=== PATIENT | male | born 1950 | race Caucasian/White ===

== ENCOUNTER 2021-04-10 09:21 | Inpatient (IN) | payer OTHER, MEDICARE ==
[~2021-04-10] VITALS: Ht 170.2 cm; Wt 89.0 kg
[2021-04-10 10:17] LABS: BASOPHILS # (AUTO) 0.1 X10'3 (0-0.2); BASOPHILS % (AUTO) 0.7 % (0-1); EOSINOPHILS # (AUTO) 0.1 X10'3 (0-0.9); HEMOGLOBIN 15.5 g/dl (14.0-17.9); LYMPHOCYTES # (AUTO) 0.7 X10'3 (1.1-4.8); LYMPHOCYTES % (AUTO) 7.7 % (21-51); MEAN CORPUSCULAR HEMOGLOBIN 28.4 PG (27.0-31.0); MEAN PLATELET VOLUME 9.1 FL (7.4-10.4); MONOCYTES # (AUTO) 0.6 X10'3 (0-0.9); MONOCYTES % (AUTO) 7.1 % (2-12); NEUTROPHILS # (AUTO) 7.6 X10'3 (1.8-7.7); NEUTROPHILS % (AUTO) 83.5 % (42-75); PLATELET COUNT 215 X10'3 (140-440); RED BLOOD COUNT 5.47 X10'6 (4.70-6.10); RED CELL DISTRIBUTION WIDTH 14.1 % (11.5-14.5); WHITE BLOOD COUNT 9.1 X10'3 (4.5-11.0)
[2021-04-10 10:38] LABS: ALANINE AMINOTRANSFERASE 23 U/L (12-78); ALKALINE PHOSPHATASE 90 IU/L (46-116); ANION GAP 14 (8-16); ASPARTATE AMINO TRANSFERASE 19 U/L (10-37); CHLORIDE 103 MMOL/L (99-107); CREATININE 1.02 MG/DL (0.60-1.10); POTASSIUM 4.5 MMOL/L (3.5-5.1); SODIUM 140 MMOL/L (135-145); TOTAL CARBON DIOXIDE 23.4 MMOL/L (24-32); eGFR 72 ML/MIN
[2021-04-10 10:44] LABS: ALBUMIN 3.9 G/DL (3.4-5.0); CALCIUM 8.8 MG/DL (8.5-10.1); GLUCOSE 166 MG/DL (70-104)
[2021-04-10 10:51] LABS: BLOOD UREA NITROGEN 17 MG/DL (7-18); BUN/CREATININE RATIO 16.7 (5.4-32.0)
[2021-04-10] MEDS ORDERED: CefTRIAXone/D5W-Rocephin 1gm 50 ML IV ONE (11:05)
[2021-04-10] MEDS ORDERED: clindamycin 600mg/D5W 50ml 50 ML IV ONE (11:40)
[2021-04-10] MEDS ORDERED: mag hydrox/Alum hydrox/simeth 30ml oral suspension PO PRN (11:45)
[2021-04-10] MEDS ORDERED: magnesium hydroxide 30ml (MOM) UD suspension PO PRN (11:45)
[2021-04-10] MEDS ORDERED: ondansetron/PF 4mg/2ml inj IV PRN (11:45)
[2021-04-10] MEDS ORDERED: acetaminophen 325mg tablet PO PRN (11:45)
[2021-04-10] MEDS ORDERED: GLIM2TAB6 PO (13:06)
[2021-04-10] MEDS ORDERED: LISI2.5T14 PO (13:06)
[2021-04-10] MEDS ORDERED: OMEP-50 PO (13:06)
[2021-04-10] MEDS ORDERED: ROSU40TA PO (13:06)
[2021-04-10] MEDS ORDERED: FLO0.4C PO (13:06)
[2021-04-10] MEDS ORDERED: LUTE1CAP5 PO (13:07)
[2021-04-10] MEDS ORDERED: SEMA0.25 SQ (13:11)
[2021-04-10] MEDS: normal saline 1000ml 1,000 ML IV SCH ×2 (13:12→21:45)
[2021-04-10] MEDS ORDERED: EMPA10TA PO (13:19)
--- NOTE | 2021-04-10 15:00 | NUR ---
Received pt from Krupa Addison in ER. Pt alert and oriented. VSS. Assessment completed. Wound picture taken of left foot.
[2021-04-10 15:22] VITALS: BP 153/64
[2021-04-10] MEDS ORDERED: insulin Lispro (HumaLOG) vial - multi-dose SQ SCH (15:40)
[2021-04-10] MEDS ORDERED: dextrose ORAL solution 15 GM/59 ML bottle PO PRN ×2 (15:40)
[2021-04-10] MEDS ORDERED: glucagon, human recombinant 1mg kit SUBCUT PRN (15:40)
[2021-04-10] MEDS ORDERED: dextrose 50%-water 50ml dispensing syringe IV PRN ×2 (15:40)
[2021-04-10] MEDS ORDERED: MESSAGE TO PHARMACY PO ONE (15:40)
--- NOTE | 2021-04-10 15:52 | NUR ---
Paged to Dr Lomax at [phone]: Pt [place] [id number] home meds are ready to be converted. Hes a diabetic so I ordered diabetic protocol. [facility] ext [phone]
[2021-04-10] MEDS ORDERED: ceFAZolin/D5W- 1GM premix 50 ML IV SCH (16:00)
[2021-04-10 16:35] LABS: HEMOGLOBIN A1C 8.7 % (4.5-6.2)
[2021-04-10] MEDS: cefepime 2g/NS 100ml ADVANTAGE 100 ML IV SCH (17:22)
[2021-04-10 18:00] VITALS: BP 140/84
--- NOTE | 2021-04-10 18:36 | NUR ---
Problems reprioritized. Patient report given, questions answered & plan of care reviewed with BRANDEN MERRILL.
--- NOTE | 2021-04-10 18:59 | NUR ---
Patient in room PCU 3026. I have received report from Heidy MERRILL and had the opportunity to ask questions and assume patient care.
--- NOTE | 2021-04-10 19:04 | NUR ---
Patient in room PCU 3026. I have received report from Heidy MERRILL and had the opportunity to ask questions and assume patient care.
[2021-04-10] MEDS: docusate sod 100mg capsule PO SCH (19:45)
[2021-04-10] MEDS: metoprolol tartrate 12.5mg (1/2 tablet) PO SCH (19:46)
[2021-04-10] MEDS: beta-carotene(A) w/C & E + minerals tab PO SCH (19:47)
[2021-04-10] MEDS ORDERED: VANCOMYCIN 1,500MG inj. 1,500 MG in normal saline 500ml IV soln 500 ML IV SCH (20:00)
[2021-04-10] MEDS: insulin glargine (Lantus) pen - multi-dose SQ SCH (21:00)
[2021-04-11 02:00] VITALS: BP 148/82
--- NOTE | 2021-04-11 03:38 | NUR ---
I have reviewed and agree with all interventions, assessments performed and documented by Sheree MERRILL.
[2021-04-11] MEDS: cefepime 2g/NS 100ml ADVANTAGE 100 ML IV SCH ×2 (03:58→15:38)
[2021-04-11 05:58] LABS: BASOPHILS # (AUTO) 0.1 X10'3 (0-0.2); BASOPHILS % (AUTO) 0.6 % (0-1); EOSINOPHILS # (AUTO) 0.2 X10'3 (0-0.9); EOSINOPHILS % (AUTO) 2.7 % (0-6); HEMATOCRIT 43.7 % (42.0-52.0); HEMOGLOBIN 14.5 g/dl (14.0-17.9); LYMPHOCYTES # (AUTO) 1.1 X10'3 (1.1-4.8); LYMPHOCYTES % (AUTO) 12.8 % (21-51); MEAN CORPUSCULAR HEMOGLOBIN 28.4 PG (27.0-31.0); MEAN CORPUSCULAR HGB CONC 33.1 g/dL (33.0-36.5); MEAN CORPUSCULAR VOLUME 85.8 FL (78-98); MEAN PLATELET VOLUME 9.6 FL (7.4-10.4); MONOCYTES # (AUTO) 0.8 X10'3 (0-0.9); MONOCYTES % (AUTO) 9.2 % (2-12); NEUTROPHILS # (AUTO) 6.5 X10'3 (1.8-7.7); NEUTROPHILS % (AUTO) 74.7 % (42-75); PLATELET COUNT 224 X10'3 (140-440); RED CELL DISTRIBUTION WIDTH 13.9 % (11.5-14.5); WHITE BLOOD COUNT 8.7 X10'3 (4.5-11.0)
--- NOTE | 2021-04-11 06:00 | NUR ---
Patient in room U 3023Y. I have received report from GARFIELD Shelton and had the opportunity to ask questions and assume patient care.
[2021-04-11 06:03] LABS: ALBUMIN 3.4 G/DL (3.4-5.0); ANION GAP 9 (8-16); BLOOD UREA NITROGEN 16 MG/DL (7-18); CALCIUM 8.5 MG/DL (8.5-10.1); CHLORIDE 106 MMOL/L (99-107); GLUCOSE 120 MG/DL (70-104); POTASSIUM 4.3 MMOL/L (3.5-5.1); SODIUM 141 MMOL/L (135-145); TOTAL CARBON DIOXIDE 25.6 MMOL/L (24-32); eGFR 74 ML/MIN
--- NOTE | 2021-04-11 06:19 | NUR ---
Problems reprioritized. Patient report given, questions answered & plan of care reviewed with Heidy MERRILL.
--- NOTE | 2021-04-11 06:19 | NUR ---
Problems reprioritized. Patient report given, questions answered & plan of care reviewed with Heidy MERRILL.
[2021-04-11 07:29] VITALS: BP 142/75
[2021-04-11] MEDS ORDERED: (Empagliflozin (Jardiance) 25 MG) PO SCH (08:00)
[2021-04-11] MEDS: metoprolol tartrate 12.5mg (1/2 tablet) PO SCH ×2 (08:04→19:44)
[2021-04-11] MEDS: pantoprazole 40mg Tablet.DR PO SCH (08:05)
[2021-04-11] MEDS: lisinopril 2.5mg tablet PO SCH (08:05)
[2021-04-11] MEDS: docusate sod 100mg capsule PO SCH ×2 (08:06→19:43)
[2021-04-11] MEDS: atorvastatin 20mg tablet PO SCH (08:06)
[2021-04-11] MEDS: enoxaparin 40mg/0.4ml syringe SUBCUT SCH (08:08)
[2021-04-11] MEDS: beta-carotene(A) w/C & E + minerals tab PO SCH ×2 (08:11→19:43)
[2021-04-11] MEDS: tamsulosin 0.4mg capsule PO SCH (08:11)
[2021-04-11] MEDS: normal saline 1000ml 1,000 ML IV SCH ×2 (08:13→17:33)
--- NOTE | 2021-04-11 09:57 | NUR ---
WOUND INFECTION EDUCATION PROVIDED BY WOUND CARE 1. Patient instructed to call their primary doctor, or go the ED immediately if any of the following symptoms occur: * Increased pain in wound * Increase in drainage from the wound * Redness in the skin surrounding the wound * Warmth in the skin surrounding the wound * Bleeding from the wound * Temperature of 101 or greater 2. If any of these occur while in the hospital tell a nurse immediately. Addendum: 04/11/21 at 0957 by Aranza Salgado RN Amended: Links added.
[2021-04-11] MEDS: mineral oil/petrolatum, white cream 113gm jar TP SCH ×3 (10:05→21:00)
--- NOTE | 2021-04-11 10:45 | NUR ---
Pt went into Afib around 1030. Pt found to be asymptomatic attempting to take a nap. BP 139/65. Vagal manuevers attempted. Following page sent to Dr Lomax.: [place] in room 3026A went into afib HR between 100-130s. BP ok 136/65. Asymptomatic. We tried vagal manuvers. He has no PRNS for HR. He received Metoprolol this am [facility] ext [phone]
[2021-04-11 11:00] VITALS: BP 144/92
--- NOTE | 2021-04-11 12:55 | NUR ---
Dr Lomax paged: Dr Lomax. Can you please come speak to Pts family of [place] room [id number]? Sister is very upset saying he needs medical attention right now. She wants to speak with an MD kim. [facility] [id number]
[2021-04-11] MEDS: clindamycin 600mg/D5W 50ml 50 ML IV SCH ×2 (13:16→19:42)
[2021-04-11 15:00] VITALS: BP 110/55
--- NOTE | 2021-04-11 16:02 | NUR ---
DM consult: Pt with T2DM with A1c 8.7% seen at bedside for DM education. Pt states he was previously on a medication that his physician reported was interrupting absorption of DM medication. Pt reports discontinuing this medication roughly three weeks ago and since discontinuing it his blood sugars have been much better controlled in the 120s. Pt provided with RD contact information and encouraged to reach out if needed. Pt endorses a good appetite which is evident with documented 100% PO intake on heart healthy CHO controlled diet. Pt agrees to double protein TID for satiety and requests ketchup WB and no milk to drink, d/w dietary. Pt denies food allergies or difficulty chewing/swallowing. [facility] 04/10, pt reports fluctuations in diarrhea and constipation is common. Currently documented with no GI symptoms in EMR. Will continue to follow. Addendum: 04/11/21 at [address] Amended: Links added.
[2021-04-11 18:00] VITALS: BP 122/72
--- NOTE | 2021-04-11 18:15 | NUR ---
Problems reprioritized. Patient report given, questions answered & plan of care reviewed with GARFIELD Bentley.
--- NOTE | 2021-04-11 18:20 | NUR ---
Patient in room PCU 3026. I have received report from Heidy MERRILL and had the opportunity to ask questions and assume patient care.
[2021-04-11] MEDS: lactobacillus rhamnosus 10,000 MMU CELLS/CAPSULE PO SCH (19:42)
[2021-04-11] MEDS: insulin glargine (Lantus) pen - multi-dose SQ SCH (21:00)
--- NOTE | 2021-04-11 21:24 | NUR ---
Patient refusing Accu check tonight, he was counseled about the need to monitor his blood sugar as high results prevent wound healing. He was also mad the Dr. Carlisle the Orthopedist did not come see him today, he blames Dr. Lomax for this and is very resistant to care. His left foot was open to air with the 5th digit bleeding, I dressed his foot and advised him to elevate it. I will pass on to dayshift that he is angry and want to see the Orthopedists.
--- NOTE | 2021-04-11 21:24 | NUR ---
Pt refusing BS draw. Taught about the effects of not treating high sugar levels and still refused.
[2021-04-11 22:00] VITALS: BP 128/62
[2021-04-12] MEDS: clindamycin 600mg/D5W 50ml 50 ML IV SCH ×2 (01:53→08:49)
[2021-04-12 02:00] VITALS: BP 148/78
--- NOTE | 2021-04-12 03:01 | NUR ---
Patient standing outside his room, when asked if he needed anything he said "No, I just need not to smell shit". His neighbor had a bowel movement and was being cleaned up. He was so mean and nasty, I moved him to room 3021. He continued to verbally abuse me and tell me what a horrible nurse I was and unhygienic.
[2021-04-12] MEDS: cefepime 2g/NS 100ml ADVANTAGE 100 ML IV SCH (04:10)
[2021-04-12] MEDS: normal saline 1000ml 1,000 ML IV SCH (04:11)
--- NOTE | 2021-04-12 06:00 | NUR ---
Patient refused to let liaison inspection laboratory assistant draw him this morning, says he will not let them until he sees the orthopedist.
--- NOTE | 2021-04-12 06:21 | NUR ---
Problems reprioritized. Patient report given, questions answered & plan of care reviewed with Bijal MERRILL.
--- NOTE | 2021-04-12 06:30 | NUR ---
Patient in room PCU 3021. I have received report from Tayler MERRILL and had the opportunity to ask questions and assume patient care. Pt semi fowlers in bed, readily verbal, telling past stories, discussing topics he is disgruntled about regarding hospitals in general. pt encouraged to verbalize feelings. safety education completed. pt verbalized understanding AEB "I already know all that. you dont have to tell me." safety measures in place. no s/sx acute distress.
[2021-04-12 07:00] VITALS: BP 150/70
--- NOTE | 2021-04-12 07:54 | NUR ---
Dr. Julio C Carlisle to see pt, wound to left toes/foot: Dr. Carlisle debride area and dressed with clean dry dressing. Per Dr. Carlisle, pt can now be seen in out patient wound care setting.
[2021-04-12] MEDS: docusate sod 100mg capsule PO SCH (08:00)
[2021-04-12] MEDS: beta-carotene(A) w/C & E + minerals tab PO SCH (08:48)
[2021-04-12] MEDS: lactobacillus rhamnosus 10,000 MMU CELLS/CAPSULE PO SCH (08:48)
[2021-04-12] MEDS: mineral oil/petrolatum, white cream 113gm jar TP SCH (08:48)
[2021-04-12] MEDS: tamsulosin 0.4mg capsule PO SCH (08:48)
[2021-04-12] MEDS: enoxaparin 40mg/0.4ml syringe SUBCUT SCH (08:48)
[2021-04-12 08:49] VITALS: BP_SYST 149
[2021-04-12] MEDS: atorvastatin 20mg tablet PO SCH (08:49)
[2021-04-12] MEDS: pantoprazole 40mg Tablet.DR PO SCH (08:49)
[2021-04-12] MEDS: lisinopril 2.5mg tablet PO SCH (08:49)
[2021-04-12] MEDS: metoprolol tartrate 12.5mg (1/2 tablet) PO SCH (08:49)
[2021-04-12] MEDS ORDERED: SEMAGLUTIDE 0.25 MG SQ SCH (10:00)
[2021-04-12] MEDS ORDERED: LINE600T12 PO (10:28)
--- NOTE | 2021-04-12 11:51 | NUR ---
Pt stable for discharge per MD order. All discharge instructions explained, all questions answered. Pt refused to allow nurse to undress wound to left foot and take pics despite encouragement, thus pics not taken upon discharge. PIV discontinued. cannula intact. front desk monitor discontinued. [facility]. Follow up appointment made with wound care clinic here at [facility] on 04/14/21@7035. Pt verbalized understanding. belongings collected including wallet and phone and indoor plant and sent with pt. pt wheeled to the [employer] where he left in a taxi. pt left, alert, talkative, without s/sx acute distress.
[2021-04-12] MEDS ORDERED: METO25TA6 MT (14:29)
[2021-04-12] MEDS ORDERED: APIX5TAB3 PO (14:29)
== END 2021-04-12 11:33 | disposition home health service (06) | DRG 603 ==
LOC: ER 09:21 → ED HOLD 11:47 → PCU 3S 14:56
PROVIDERS: ADMIT Family Medicine; ATTEND Family Medicine
PROC: 0HBRXZZ Excision of Toe Nail, External Approach (ICD-10-PCS; principal; 2021-04-12)
DX: L03.116 Cellulitis of left lower limb (principal); L02.612 Cutaneous abscess of left foot; I48.91 Unspecified atrial fibrillation; E78.5 Hyperlipidemia, unspecified; G47.30 Sleep apnea, unspecified; M19.90 Unspecified osteoarthritis, unspecified site; I10 Essential (primary) hypertension; E78.00 Pure hypercholesterolemia, unspecified; N40.0 Benign prostatic hyperplasia without lower urinary tract symptoms; Z87.891 Personal history of nicotine dependence; Z88.8 Allergy status to other drugs, medicaments and biological substances; Z79.899 Other long term (current) drug therapy
CPT/HCPCS: 36415; 71045; 73630; 80048; 80053; 82948; 83036; 83605; 84145; 84439; 84443; 85025; 87040; 87081; 93005; 99285; G0378; J0692; J0696; J1650; J1815; J3490; J7030